=== PATIENT | female | born 1975 | race Two or more races ===

== ENCOUNTER 2016-11-03 15:43 | Emergency (ER) | payer MEDICAID ==
[~2016-11-03] VITALS: Ht 154.9 cm; Wt 63.5 kg
[2016-11-03] MEDS ORDERED: KETOROLAC TROMETH 60MG/2ML VIAL IM ONE (18:15)
[2016-11-03 18:30] VITALS: BP 119/73
== END 2016-11-03 19:06 | disposition home or self-care (01) ==
LOC: ER 15:47
DX: G89.29 Other chronic pain (principal); M54.40 Lumbago with sciatica, unspecified side; M25.70 Osteophyte, unspecified joint
CPT/HCPCS: 72100; 81002; 96372; 99284; J1885

== ENCOUNTER 2020-07-27 13:19 | Inpatient (IN) | payer MEDICAID ==
[~2020-07-27] VITALS: Ht 154.9 cm; Wt 67.5 kg
[2020-07-27] MEDS ORDERED: SODIUM CHLORIDE 0.9% 1,000 ML IV ONE ×2 (13:45)
[2020-07-27] MEDS ORDERED: ONDANSETRON HCL 4 MG/2 ML VIAL IV ONE (14:30)
[2020-07-27] MEDS ORDERED: MORPHINE SULF INJ 2 MG/ML SYRINGE 1ML IV ONE (14:30)
[2020-07-27 14:39] LABS: Basophils # (auto) 0.1 10 ^3/uL (0-0.2); Basophils % (auto) 1.4 % (0.0-2.0); Eosinophils # (auto) 0 10 ^3/uL (0-0.8); Eosinophils % (auto) 0.2 % (0.0-7.0); Hematocrit 42.5 % (36.0-46.0); Hemoglobin 13.9 g/dL (12.2-16.2); Lymphocytes # (auto) 1.1 10 ^3/uL (0.4-5.4); Lymphocytes % (auto) 15.5 % (10.0-50.0); Mean Corpuscular Hemoglobin 29.1 pg (28.0-32.0); Mean Corpuscular Hgb Conc. 32.6 g/dL (32.0-36.0); Mean Corpuscular Volume 89.2 fL (80.0-100.0); Monocytes # (auto) 0.3 10 ^3/uL (0-1.3); Monocytes % (auto) 4.3 % (0.0-12.0); Neutrophils # (auto) 5.6 10 ^3/uL (1.6-8.6); Neutrophils % (auto) 78.6 % (37.0-80.0); Platelet Count (auto) 586 10^3/uL (140-450); Red Blood Cells 4.77 10^6/uL (4.0-5.20); Red Cell Distribution Width 13.8 % (11.8-14.3); White Blood Cell 7.1 10^3/uL (4.4-10.8)
[2020-07-27 14:59] LABS: Albumin 3.7 g/dL (3.4-5.0); Anion Gap 13 (5-15); Blood Urea Nitrogen 7 mg/dL (7-18); Calcium 8.5 mg/dL (8.5-10.1); Carbon Dioxide 17 mmol/L (21-32); Chloride 107 mmol/L (98-107); Glucose 75 mg/dL (74-106); Lipase 75 U/L (73-393); Potassium 4.1 mmol/L (3.5-5.1); Sodium 137 mmol/L (136-145)
[2020-07-27 15:04] LABS: Alanine Aminotransferase 19 U/L (13-56); Alkaline Phosphatase 131 U/L (45-117); Aspartate Aminotransferase 21 U/L (15-37); BUN/Creatinine Ratio 10.4; Bilirubin, Total 0.3 mg/dL (0.2-1.0); GFR African American 123 mL/min; GFR Non-African American 102 mL/min
[2020-07-27] MEDS ORDERED: KETOROLAC TROMETH 30 MG/ML 1ML VIAL IV ONE (15:45)
[2020-07-27] MEDS ORDERED: metroNIDAZOLE 500MG/100ML 100 ML IV ONE (16:15)
[2020-07-27] MEDS ORDERED: cefTRIAXone 1GM/50ML D5W 50 ML IV ONE (16:15)
[2020-07-27 17:23] LABS: Urine Bacteria NONE SEEN /hpf (None Seen); Urine Blood Negative /uL (Negative); Urine Mucus FEW (None Seen); Urine Specific Gravity 1.022 (1.001-1.035); Urine WBC 1 /hpf (0 - 5)
[2020-07-27] MEDS ORDERED: ALBUTEROL SULF 2.5 MG/0.5ML(0.5%) NEB SOLN NEB PRN (17:30)
[2020-07-27] MEDS ORDERED: MORPHINE SULF INJ 2 MG/ML SYRINGE 1ML IV PRN (17:30)
[2020-07-27] MEDS ORDERED: PANTOPRAZOLE 40 MG TAB PO ONE (17:30)
[2020-07-27] MEDS ORDERED: IPRATROPIUM BROM 0.5 MG/2.5ML INH SOL NEB PRN (17:30)
[2020-07-27] MEDS ORDERED: NITROGLYCERIN 0.4 MG SL TAB SL PRN (17:30)
[2020-07-27] MEDS ORDERED: ACETAMINOPHEN 500 MG TAB PO PRN (17:30)
[2020-07-27] MEDS: SODIUM CHLORIDE 0.9% 1,000 ML IV SCH ×2 (18:06→19:48)
[2020-07-27] MEDS: ONDANSETRON HCL 4 MG/2 ML VIAL IV PRN ×2 (18:16→22:45)
[2020-07-27] MEDS: MORPHINE SULF INJ 2 MG/ML SYRINGE 1ML IV PRN ×2 (18:16→22:45)
--- NOTE | 2020-07-27 18:45 | NUR ---
Telemetry admit from ER ROGEXI admitted to Telemetry unit after SBAR received from ER nurse Nereida. Patient oriented to Angelica Meza RN primary RN, unit, room, bed, and unit policies regarding patient care and visiting hours. Patient now on continuous telemetry monitoring, tele box #57 and telemetry reading on arrival to unit is SR -75 All questions and concerns addressed, patient verbalized understanding. Admission endorsed to NOC RN. NOC RN also aware that VIRGINIE Reyes would like results of D-dimer.
[2020-07-27] MEDS ORDERED: OXYC325T14 PO (19:08)
[2020-07-27] MEDS ORDERED: GABA800T97 PO (19:08)
[2020-07-27] MEDS ORDERED: ALBUAER3 IN (19:08)
[2020-07-27] MEDS ORDERED: ASCO500T11 PO (19:08)
[2020-07-27] MEDS ORDERED: ALPR1TAB7 PO (19:08)
[2020-07-27] MEDS ORDERED: METH750T3 PO (19:08)
[2020-07-27 19:39] VITALS: BP 105/64
[2020-07-27] MEDS: HYDROcodone-ACET 5/325MG TAB PO PRN (19:40)
[2020-07-27 20:00] VITALS: BP 115/68
[2020-07-27 21:01] VITALS: BP 115/68
[2020-07-27 22:00] VITALS: BP 115/68
--- NOTE | 2020-07-27 22:14 | NUR ---
Respiratory note: PT SEEN AND ASSESSED FOR PRN MED NEB TX AT 2214. TX IS NOT INDICATED AT THIS TIME. PT DENIES ANY RESPIRATORY DISTRESS. BREATH SOUNDS WERE CLEAR AND DIMINISHED BILATERALLY. HR 79 RR 18 SP02 98% ON ROOM AIR. PT AWARE TO CALL FOR RT IF ANY DISTRESS OCCURS.
[2020-07-27] MEDS: metroNIDAZOLE 500MG/100ML 100 ML IV SCH (22:45)
[2020-07-27] MEDS: TEMAZEPAM 15 MG CAP PO PRN (22:45)
[2020-07-28] MEDS: MORPHINE SULF INJ 2 MG/ML SYRINGE 1ML IV PRN ×3 (03:58→12:50)
[2020-07-28] MEDS: ONDANSETRON HCL 4 MG/2 ML VIAL IV PRN (04:45)
[2020-07-28] MEDS: SODIUM CHLORIDE 0.9% 1,000 ML IV SCH ×2 (04:52→21:08)
[2020-07-28 05:00] VITALS: BP_SYST 103; BP_SYST 139; BP_DIAS 60; BP_DIAS 82
[2020-07-28 05:51] LABS: Basophils # (auto) 0.1 10 ^3/uL (0-0.2); Basophils % (auto) 1.4 % (0.0-2.0); Eosinophils # (auto) 0.1 10 ^3/uL (0-0.8); Eosinophils % (auto) 0.6 % (0.0-7.0); Hematocrit 37.2 % (36.0-46.0); Hemoglobin 12.4 g/dL (12.2-16.2); Lymphocytes # (auto) 1.6 10 ^3/uL (0.4-5.4); Mean Corpuscular Hgb Conc. 33.4 g/dL (32.0-36.0); Mean Corpuscular Volume 89.7 fL (80.0-100.0); Monocytes # (auto) 0.5 10 ^3/uL (0-1.3); Monocytes % (auto) 5.3 % (0.0-12.0); Neutrophils # (auto) 7.5 10 ^3/uL (1.6-8.6); Neutrophils % (auto) 76.7 % (37.0-80.0); Platelet Count (auto) 453 10^3/uL (140-450); Red Blood Cells 4.14 10^6/uL (4.0-5.20); Red Cell Distribution Width 13.4 % (11.8-14.3); White Blood Cell 9.8 10^3/uL (4.4-10.8)
[2020-07-28 06:11] LABS: Anion Gap 11 (5-15); Blood Urea Nitrogen 5 mg/dL (7-18); Calcium 8.2 mg/dL (8.5-10.1); Carbon Dioxide 17 mmol/L (21-32); Chloride 111 mmol/L (98-107); Glucose 66 mg/dL (74-106); Sodium 139 mmol/L (136-145)
[2020-07-28 06:16] LABS: BUN/Creatinine Ratio 8.5; GFR African American 142 mL/min; GFR Non-African American 118 mL/min
[2020-07-28] MEDS: metroNIDAZOLE 500MG/100ML 100 ML IV SCH ×3 (06:28→21:50)
[2020-07-28] MEDS: HYDROcodone-ACET 5/325MG TAB PO PRN ×2 (06:33→20:21)
--- NOTE | 2020-07-28 07:20 | NUR ---
Admission Completed The patient arrived to the floor less than 30mins prior to change of shift at 1836hrs. Previous nurse completed the physical assessments and associated interventions. I completed the rest of the admission to include the Med Rec, Belongings Sheet, and MRSA Swab. Completed my own assessment, the patient was in pain but otherwise stable. Will continue to monitor.
--- NOTE | 2020-07-28 07:23 | NUR ---
D Dimer Results Informed during report that Mr. Reyes wanted to know about the D Dimer results as he suspected a PE with this patient. Spoke to him about 2215hrs and informed him the D Dimer was within normal range at 0.34. Will continue to monitor.
--- NOTE | 2020-07-28 07:30 | NUR ---
Opening Shift Note Assumed care of patient, awake and alert. No S/S of distress/SOB or pain. Instructed on POC and to call for assist PRN, will continue to monitor for changes Q1hr and PRN. Fall precautions in place per safety protocol.
[2020-07-28 08:53] VITALS: BP 105/57
[2020-07-28] MEDS: cefTRIAXone 1GM/50ML D5W 50 ML IV SCH (09:05)
[2020-07-28] MEDS: PANTOPRAZOLE 40 MG TAB PO SCH (09:05)
[2020-07-28 13:00] VITALS: BP 106/62
--- NOTE | 2020-07-28 13:00 | NUR ---
Hospitalist Jeffery at bedside, aware of patient status. New orders to advance diet as tolerated received along with new orders for Percocet. Will cont to monitor patient.
[2020-07-28] MEDS: OXYCODONE W/ ACETAMINOPHEN 5/325MG TABLET PO PRN ×2 (14:49→21:50)
[2020-07-28 16:42] VITALS: BP 108/68
--- NOTE | 2020-07-28 18:58 | NUR ---
PT ASSESSED FOR PRN MED NEB TX. SPO2 98% ON RA, HR 86. PT DENIES ANY RESPIRATORY DISTRESS. NO TX INDICATED AT THIS TIME. PT IS AWARE TO HAVE RT PAGED IF TX NEEDED.
--- NOTE | 2020-07-28 19:31 | NUR ---
Endorsed care to night CLARENCE Raiv. Patient resting in bed, no distress, sob, or pain noted at this time.
--- NOTE | 2020-07-28 19:35 | NUR ---
Opening Shift Note Assumed care of patient, awake and alert. No S/S of distress/SOB or pain. Instructed on POC and to call for assist PRN, will continue to monitor for changes Q1hr and PRN.
--- NOTE | 2020-07-28 21:00 | NUR ---
Patient rounded. All questions and concerns addressed. Patient verbalized understanding. All needs attended to. Care continued.
[2020-07-28] MEDS: TEMAZEPAM 15 MG CAP PO PRN (21:50)
[2020-07-28 22:00] VITALS: BP 110/66
--- NOTE | 2020-07-28 23:00 | NUR ---
Patient rounded. No complains at this time. All needs attended to. Will continue to monitor patient Q1 hour and prn.
--- NOTE | 2020-07-29 00:42 | NUR ---
Patient rounded. Patient resting comfortably in bed, breathing even, no facial grimace for pain. Car continued. Addendum: 07/29/20 at 0043 by Breonna Seay RN Care continued.
[2020-07-29 05:05] VITALS: BP 87/49
[2020-07-29] MEDS: ONDANSETRON HCL 4 MG/2 ML VIAL IV PRN (06:21)
[2020-07-29] MEDS: metroNIDAZOLE 500MG/100ML 100 ML IV SCH (06:21)
[2020-07-29 06:46] LABS: Basophils # (auto) 0.1 10 ^3/uL (0-0.2); Basophils % (auto) 0.9 % (0.0-2.0); Eosinophils # (auto) 0.1 10 ^3/uL (0-0.8); Eosinophils % (auto) 0.7 % (0.0-7.0); Hematocrit 37.6 % (36.0-46.0); Hemoglobin 12.2 g/dL (12.2-16.2); Lymphocytes # (auto) 1.7 10 ^3/uL (0.4-5.4); Lymphocytes % (auto) 19.9 % (10.0-50.0); Mean Corpuscular Hgb Conc. 32.6 g/dL (32.0-36.0); Monocytes # (auto) 0.4 10 ^3/uL (0-1.3); Monocytes % (auto) 5.2 % (0.0-12.0); Neutrophils # (auto) 6.3 10 ^3/uL (1.6-8.6); Neutrophils % (auto) 73.3 % (37.0-80.0); Platelet Count (auto) 411 10^3/uL (140-450); Red Blood Cells 4.22 10^6/uL (4.0-5.20); Red Cell Distribution Width 13.3 % (11.8-14.3); White Blood Cell 8.7 10^3/uL (4.4-10.8)
[2020-07-29 07:03] LABS: Calcium 8.1 mg/dL (8.5-10.1); Potassium 3.2 mmol/L (3.5-5.1)
[2020-07-29 07:08] LABS: BUN/Creatinine Ratio 4.2; Bilirubin, Total 0.3 mg/dL (0.2-1.0); Total Protein 6.4 g/dL (6.4-8.2)
[2020-07-29] MEDS: HYDROcodone-ACET 5/325MG TAB PO PRN (08:28)
[2020-07-29 09:00] VITALS: BP 111/71
--- NOTE | 2020-07-29 09:12 | NUR ---
PT. ASSESSED FOR PRN. MED NEB TX., NO RESP. DISTRESS OR SOB NOTED. PT. IS ALERT AND ORIENTED, PT. STATES SHE IS BREATHING FINE. HR=86,RR=16,SP02=99% ON RA. BS. ARE CLEAR, [place]. TX. NOT INDICATED OR GIVEN AT THIS TIME, PT. INSTRUCTED TO CALL IF NEEDED. Addendum: 07/29/20 at 0915 by Karen Scott RT Amended: Links added.
[2020-07-29] MEDS: PANTOPRAZOLE 40 MG TAB PO SCH (09:30)
[2020-07-29] MEDS: OXYCODONE W/ ACETAMINOPHEN 5/325MG TABLET PO PRN (09:31)
[2020-07-29] MEDS: cefTRIAXone 1GM/50ML D5W 50 ML IV SCH (09:31)
[2020-07-29] MEDS ORDERED: POTASSIUM CHLORIDE 40 MEQ, LIDOCAINE 1% (LOCAL ANESTH.) 4 ML in SODIUM CHL 0.9% 100 ML IV ONE (10:00)
[2020-07-29 13:00] VITALS: BP 108/64
--- NOTE | 2020-07-29 16:11 | NUR ---
Discharge instructions given as ordered. Encourage to follow up with DR. NORMAN ON 08/05/20 AT 1000AM as instructed. All questions and concerns addressed. Patient verbalized understanding. Medication reconciliation form completed and copy given to patient. IV removed with catheter intact, pressure dressing applied. Telemetry unit returned to ICU. Patient taken to vehicle via wheelchair with all personal belongings, accompanied by staff and family member. No distress noted at time of departure.
== END 2020-07-29 15:55 | disposition home or self-care (01) | DRG 245 ==
LOC: EDBD 13:19 → ER 13:19 → TELE-WESTW 13:20
PROVIDERS: ADMIT Nurse Practitioner Acute Care; ATTEND Internal Medicine
DX: K51.50 Left sided colitis without complications (principal); E44.1 Mild protein-calorie malnutrition; M94.0 Chondrocostal junction syndrome [Tietze]; E66.9 Obesity, unspecified; Z68.30 Body mass index [BMI] 30.0-30.9, adult; E86.0 Dehydration; F17.210 Nicotine dependence, cigarettes, uncomplicated; D64.9 Anemia, unspecified; K80.20 Calculus of gallbladder without cholecystitis without obstruction; N83.201 Unspecified ovarian cyst, right side; Z79.899 Other long term (current) drug therapy
CPT/HCPCS: 36415; 71045; 74176; 76705; 80048; 80053; 81001; 83605; 83690; 84484; 85025; 85379; 87040; 87081; 93306; 96365; 96368; 96375; G0378; J0696; J1885; J2001; J2405; J3490